=== PATIENT | female | born 1945 | race Caucasian/White ===

== ENCOUNTER 2022-11-01 12:06 | Day surgery (SDC) | payer MEDICARE, OTHER, SELFPAY ==
--- NOTE | 2022-11-01 | US_ITS ---
The [address] [address] Patient Name: ELSA ALMODOVAR MRN: [id number] date: 1945 Sex: F Assigned Patient Location: US Current Patient Location: Accession/Order Number: [id number] Exam Date: 11/01/2022 13:00 Report Date: 11/01/2022 15:07 At the request of: NON-STAFF PHYSICIAN Procedure: US biopsy thyroid EXAMINATION: US biopsy thyroid HISTORY: Thyroid nodule COMPARISON: No relevant comparison available. TECHNIQUE: After obtaining informed consent, an ultrasound-guided biopsy was performed in the usual sterile manner. FINDINGS: IMAGING: Ultrasound BIOPSY NEEDLE: 25-gauge, 2 inch SPECIMEN TYPE, #, LOCATION: 4 fine-needle aspirates, left thyroid 3 cm nodule MEDICATION: 4 cc 1% buffered lidocaine COMPLICATIONS: None. LABORATORY: Molecular analysis and pathology OTHER: Negative. US/US biopsy thyroid IMPRESSION: Uneventful ultrasound guided biopsy. The patient was instructed to obtain follow up care and biopsy results from the referring physician. Electronically authenticated by: LALITHA MOTA Date: 11/01/2022 15:07
[2022-11-01 12:30] VITALS: BP 121/68; PULSE 74; O2SAT 94
[2022-11-01] MEDS: LIDOCAINE HCL 10 ML, SODIUM BICARBONATE 1 MEQ INJ (13:20)
--- NOTE | 2022-11-01 14:42 | SUR.PREOP ---
10/23/22 Discussed with pt procedure and prep. She states that she is able to hold her ASA and Clopidogrel x 3 days prior to biopsy as she just did for her GILMAR one month ago. Pt instructed to do that and made aware of date, time of procedure.
== END 2022-11-01 13:45 | disposition home or self-care (01) ==
PROVIDERS: Radiology Diagnostic Radiology
DX: E04.1 Nontoxic single thyroid nodule (principal)
CPT/HCPCS: 10005; 88173

== ENCOUNTER 2023-02-21 11:14 | Outpatient (OUT) | payer MEDICARE, OTHER, SELFPAY ==
--- NOTE | 2023-02-21 11:50 | MM_ITS ---
Patient Name: ELSA ALMODOVAR MR#: [id number] : 1945 Exam Date: 02/21/2023 Ordering Doctor: DR DANIEL RAMOS D.O. RADIOLOGY REPORT PROCEDURE: MM TOMOSYNTHESIS SCREENING BI COMPARISON: MG MAMM SCREEN 3D CECE CAD, 01/12/2021. MG MAMM SCREEN CECE W CAD, 08/24/2019. MG MAMM CECE SCRN W CAD DIG, 12/04/2012. INDICATIONS: sceening Calculator Name NCI Breast Cancer Risk Assessment Tool 5 Year Breast Cancer Risk 2.00% Lifetime Breast Cancer Risk 4.20% Personal Breast Cancer No Personal Ovarian Cancer No Treatments None Family Cancers Mother with vaginal cancer at age 38; Father with prostate cancer at age 70. LOCATION: [facility] BREAST COMPOSITION: Scattered areas fibroglandular density. FINDINGS: DIAGNOSTIC CATEGORY 2--BENIGN FINDING: RIGHT BREAST: No significant suspicious finding. No significant change has occurred. LEFT BREAST: No significant suspicious finding. Scattered benign-appearing calcifications are present. No significant change has occurred. RECOMMENDATIONS: ROUTINE MAMMOGRAM AND CLINICAL EVALUATION IN 12 MONTHS. PLEASE NOTE: A NORMAL MAMMOGRAM DOES NOT EXCLUDE THE POSSIBILITY OF BREAST CANCER. A CLINICALLY SUSPICIOUS PALPABLE LUMP SHOULD BE BIOPSIED. Dictated by: Tyler Welsh M.D. on 02/21/2023 at 13:22 Approved by: Tyler Welsh M.D. on 02/21/2023 at 14:01
== END 2023-02-21 11:15 | disposition home or self-care (01) ==
LOC: MAMMO 11:16
PROVIDERS: PCP Internal Medicine; Visit Provider Internal Medicine
DX: Z12.31 Encounter for screening mammogram for malignant neoplasm of breast (principal); Z80.8 Family history of malignant neoplasm of other organs or systems; Z80.42 Family history of malignant neoplasm of prostate
CPT/HCPCS: 77063; 77067